=== PATIENT | female | born 1950 | race Hispanic/Latino ===

== ENCOUNTER 2020-12-12 19:09 | Emergency (ER) | payer MEDICARE ==
[2020-12-12] MEDS ORDERED: Oxymetazoline HCl 0.05% (30 ML BOT) ONE (19:38)
== END 2020-12-12 20:35 | disposition home or self-care (01) ==
LOC: NAV ERS 19:09
DX: R04.0 Epistaxis (principal); E11.9 Type 2 diabetes mellitus without complications; I11.0 Hypertensive heart disease with heart failure; I50.9 Heart failure, unspecified; I25.10 Atherosclerotic heart disease of native coronary artery without angina pectoris; Z79.82 Long term (current) use of aspirin; Z79.4 Long term (current) use of insulin; Z79.899 Other long term (current) drug therapy
CPT/HCPCS: 30905